=== PATIENT | male | born 2000 | race Asian ===

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

== ENCOUNTER 2018-06-23 22:27 | Emergency (ER) | payer OTHER ==
[~2018-06-23] VITALS: Ht 165.1 cm; Wt 65.9 kg
[2018-06-24] VITALS: BP 128/56
[2018-06-24] MEDS ORDERED: NEOMYCIN/POLYMYXIN B/HYDROCORT 10 ML OTIC SOLUTION AS ONE (00:15)
== END 2018-06-24 00:29 | disposition home or self-care (01) ==
LOC: EMS 22:28
DX: S00.412A Abrasion of left ear, initial encounter (principal); H60.92 Unspecified otitis externa, left ear; F41.9 Anxiety disorder, unspecified; F31.9 Bipolar disorder, unspecified; W22.8XXA Striking against or struck by other objects, initial encounter; Y93.89 Activity, other specified; Y92.89 Other specified places as the place of occurrence of the external cause; Y99.8 Other external cause status

== ENCOUNTER 2018-11-01 19:31 | Inpatient (IN) | payer MEDICAID, OTHER ==
[~2018-11-01] VITALS: Ht 165.1 cm; Wt 65.5 kg
[2018-11-01 21:32] LABS: BASOPHILS % (AUTO) 1.2 % (0.0-2.0); HEMATOCRIT 44.2 % (41-53); HEMOGLOBIN 13.8 g/dL (13.5-17.5); LYMPHOCYTES # (AUTO) 1.3 K/uL (1.0-4.8); LYMPHOCYTES % (AUTO) 13.1 % (22.0-44.0); MEAN CORPUSCULAR HEMOGLOBIN 19.2 pg (26.0-34.0); MEAN CORPUSCULAR HGB CONC 31.3 G/dL (31.0-37.0); MEAN CORPUSCULAR VOLUME 61 fL (80-100); MONOCYTES # (AUTO) 0.7 K/uL (0.1-1.0); MONOCYTES % (AUTO) 6.8 % (2.0-9.0); NEUTROPHILS # (AUTO) 7.1 K/uL (1.8-7.7); NEUTROPHILS % (AUTO) 73.9 % (40.0-70.0); PLATELET COUNT (AUTO) 282 K/uL (150-450); RED BLOOD CELL COUNT(AUTO) 7.22 MIL/uL (4.50-5.90); RED CELL DISTRIBUTION WIDTH 15.8 % (11.5-14.5)
[2018-11-01 21:41] LABS: AMPHET/METH SCREEN,URINE NEGATIVE (NEGATIVE); BARBITURATE SCREEN, URINE NEGATIVE (NEGATIVE); BENZODIAZEPINES SCREEN,URINE NEGATIVE (NEGATIVE); CANNABINOID SCREEN,URINE NEGATIVE (NEGATIVE); COCAINE SCREEN,URINE NEGATIVE (NEGATIVE); METHADONE SCREEN, URINE NEGATIVE (NEGATIVE); OPIATE SCREEN,URINE NEGATIVE (NEGATIVE); PHENCYCLIDINE SCREEN,URINE NEGATIVE (NEGATIVE)
[2018-11-01 21:47] LABS: ANION GAP 12 mmol/L (8-16); CALCIUM, TOTAL 9.3 mg/dL (8.8-10.5); CARBON DIOXIDE 26 mmol/L (22-29); CHLORIDE 103 mmol/L (98-107); CREATININE 1.09 mg/dL (0.60-1.30); GLOMERULAR FILTR. RATE CALC > 60 mL/min (>60); GLUCOSE,RANDOM 93 mg/dL (70-110); POTASSIUM 3.3 mmol/L (3.5-5.1); SODIUM SERUM 141 mmol/L (136-145); UREA NITROGEN, BLOOD 14 mg/dL (7-18)
[2018-11-01 21:50] LABS: ALANINE AMINOTRANSFERASE 36 U/L (12-78); ALBUMIN 4.4 g/dL (3.4-5.0); ALKALINE PHOSPHATASE 79 U/L (46-116); ASPARTATE AMINOTRANSFERASE 18 U/L (15-37); BILIRUBIN,TOTAL 0.6 mg/dL (0.1-1.0); TOTAL PROTEIN, SERUM 7.8 g/dL (6.4-8.2)
[2018-11-02] MEDS ORDERED: PERTUSS(ACELL),DIPH,TET VAC/PF 0.5 ML VIAL IM ONE (00:45)
[2018-11-02] MEDS ORDERED: ZOLPIDEM TARTRATE 10 MG TABLET PO PRN (01:15)
[2018-11-02] MEDS ORDERED: LORazepam 2 MG TABLET PO PRN (01:15)
[2018-11-02] MEDS ORDERED: HALOPERIDOL 5 MG TABLET PO PRN (01:15)
[2018-11-02 05:03] VITALS: BP 120/77
[2018-11-02] MEDS: BACITRACIN 28.4 GM OINTMENT TP SCH ×2 (09:00→17:15)
[2018-11-02 10:00] VITALS: BP 107/59
[2018-11-02] MEDS ORDERED: MAG HYDROX/AL HYDROX/SIMETH ES 30 ML SUSPENSION UDCUP PO PRN (10:45)
[2018-11-02] MEDS ORDERED: GuaiFENesin/D-METHORPHAN [SUGAR-FREE] 200-20MG/10 ML SYRUP UDCUP PO PRN (10:45)
[2018-11-02] MEDS ORDERED: ALBUTEROL SULFATE HFA 90 MCG/PUFF 8 GM INHALER IH PRN (10:45)
[2018-11-02] MEDS ORDERED: DOCUSATE SODIUM 100 MG CAPSULE PO PRN (10:45)
[2018-11-02] MEDS ORDERED: LOPERAMIDE HCL 2 MG CAPSULE PO PRN (10:45)
[2018-11-02] MEDS ORDERED: NICOTINE 14 MG/24 HOUR PATCH TD PRN (10:45)
[2018-11-02] MEDS ORDERED: IBUPROFEN 400 MG TABLET PO PRN (10:45)
[2018-11-02] MEDS ORDERED: MAGNESIUM HYDROXIDE SUSPENSION 30 ML UDCUP PO PRN (10:45)
[2018-11-02] MEDS ORDERED: ONDANSETRON HCL 4 MG TABLET PO PRN (10:45)
[2018-11-02] MEDS ORDERED: ACETAMINOPHEN 325 MG TABLET PO PRN (10:45)
[2018-11-02] MEDS ORDERED: PETROLATUM,WHITE 28 GM JELLY TP PRN (10:45)
[2018-11-02] MEDS ORDERED: CloNIDine HCL 0.1 MG TABLET PO PRN (10:45)
[2018-11-02] MEDS: BuPROPion HCL XL 150 MG ER TABLET PO SCH (12:29)
[2018-11-02 17:38] VITALS: BP 126/59
[2018-11-03 07:17] LABS: CHOL/HDL RATIO 3.4 (4.2-7.3)
[2018-11-03 09:26] VITALS: BP 115/74
[2018-11-03] MEDS: BACITRACIN 28.4 GM OINTMENT TP SCH ×2 (10:23→17:12)
[2018-11-03] MEDS: BuPROPion HCL XL 150 MG ER TABLET PO SCH (10:23)
[2018-11-03 17:25] VITALS: BP 105/58
[2018-11-04 08:06] VITALS: BP 121/87
[2018-11-04] MEDS: BuPROPion HCL XL 150 MG ER TABLET PO SCH (09:45)
[2018-11-04] MEDS: BACITRACIN 28.4 GM OINTMENT TP SCH ×2 (09:45→16:49)
[2018-11-04] MEDS ORDERED: [UNRECOGNIZED DRUG - CODE] TP (12:35)
[2018-11-04] MEDS ORDERED: BUPR-93 PO (12:35)
[2018-11-04 16:34] VITALS: BP 114/71
[2018-11-05 09:34] VITALS: BP 128/70
[2018-11-05] MEDS: BuPROPion HCL XL 150 MG ER TABLET PO SCH (09:37)
[2018-11-05] MEDS: BACITRACIN 28.4 GM OINTMENT TP SCH (09:37)
== END 2018-11-05 16:00 | disposition home or self-care (01) | DRG 751 ==
LOC: EMS 19:31 → 3EI 11-02 02:16
PROVIDERS: ADMIT Psychiatry & Neurology Psychiatry; ATTEND Psychiatry & Neurology Psychiatry
DX: F33.9 Major depressive disorder, recurrent, unspecified (principal); R45.851 Suicidal ideations; E87.6 Hypokalemia; R10.13 Epigastric pain
CPT/HCPCS: 84132; 90715; G0480